=== PATIENT | female | born 1935 | race Caucasian/White ===

== ENCOUNTER → 2016-09-16 | Outpatient (CLI) | payer MEDICARE, BC | LOC: LAB.O 08:38 | PROVIDERS: ATTEND Internal Medicine Interventional Cardiology | DX: I48.0 Paroxysmal atrial fibrillation (principal); R53.83 Other fatigue ==

== ENCOUNTER → 2017-02-25 | Outpatient (CLI) | payer MEDICARE, BC ==
--- NOTE | 2017-02-25 10:54 | MAM ---
History: Well woman exam. Personal history of breast cancer status post right mastectomy Date of exam: 02/25/2017 Services provided: Left full field digital screening mammography. CAD, the images were reviewed with R2 computer aided detection. FINDINGS: Glandular tissue is scattered glandular contour. Comparison with 2010 exam. No dominant mass, architectural distortion or clustered microcalcification. IMPRESSION: Benign exam Recommendation: Routine annual mammography BIRAD CATEGORY: 2 BENIGN Electronically signed by: Amira Guzman MD 02/25/2017 10:53 AM CDT Workstation: [id number]
== END ==
LOC: MAMMO 08:25
PROVIDERS: ATTEND Nurse Practitioner Family
DX: Z12.31 Encounter for screening mammogram for malignant neoplasm of breast (principal)

== ENCOUNTER → 2017-03-04 | Outpatient (CLI) | payer MEDICARE, BC | LOC: LAB.O 09:21 | PROVIDERS: ATTEND Nurse Practitioner Family | DX: I10 Essential (primary) hypertension (principal); E01.8 Other iodine-deficiency related thyroid disorders and allied conditions ==

== ENCOUNTER 2017-05-25 08:29 | Observation (INO) | payer MEDICARE, BC ==
[2017-05-25] MEDS ORDERED: NITROGLYCERIN 0.4 MG 25 EA TAB SL ONE (09:12)
[2017-05-25] MEDS ORDERED: SODIUM CHLORIDE 0.9% (FLUSH) 10 ML SYG IV PRN ×2 (09:12→14:37)
[2017-05-25] MEDS: ASPIRIN TABLET 325 MG TAB PO ONE ×2 (09:26→09:29)
--- NOTE | 2017-05-25 09:30 | RAD ---
EXAM DESCRIPTION: Chest,1 View CLINICAL HISTORY: 82 years, Female, CHEST PAIN COMPARISON: November 20, 2014 FINDINGS: Adequate inspiration. Elevated right hemidiaphragm. Scattered relatively stable fibrotic type changes. Sternotomy. Multiple surgical clips over the right lower lateral thorax. Stable mild cardiomegaly. IMPRESSION: Chronic appearing lung change with stable mild cardiomegaly Electronically signed by: Ricardo Uriarte MD 05/25/2017 9:29 AM CDT
--- NOTE | 2017-05-25 10:23 | ED.PDOC ---
History of Present Illness - General Chief Complaint: Cardiovascular Problem Stated Complaint: chest tightness/sob Time Seen by Provider: 05/25/17 08:37 Source: patient - History of Present Illness Initial Comments: PT PRESENTS TO THE ED WITH COMPLAINT OF INTERMITTENT CHEST PRESSURE OVER THE PAST 2 WEEKS WITH RADIATION DOWN THE RIGHT ARM. PT STATES THAT PAIN IS ASSOCIATED WITH SOB AND NAUSEA. SHE REPORTS INCREASED DISCOMFORT THIS MORNING AND HIGHER THAN USUAL BP READINGS. PT REPORTS READINGS OF 150S/80S AT HOME. CURRENT PAIN IS 5/10. Timing/Duration: intermittent Severity/Quality: pressure Location: substernal Chest Pain Radiation: arms - RIGHT ARM Activities at Onset: none Prior Chest Pain/Cardiac Workup: cardiac cath, stress test Improving Factors: nothing Worsening Factors: nothing Nitro Today/Relief: no nitro taken today Aspirin Treatment Today: provided by ED Associated Symptoms: nausea/vomiting, shortness of breath, weakness Allergies/Adverse Reactions: Allergies Acetaminophen [From Percocet] Allergy (Verified 05/28/13 11:20) Amlodipine [From Ave] Allergy (Verified 05/25/17 09:05) Atorvastatin [From Lipitor] Allergy (Verified 05/28/13 11:20) Celecoxib [From Celebrex] Allergy (Verified 05/28/13 11:20) Cholestyramine [From Questran] Allergy (Verified 05/25/17 09:05) Digoxin [From Digitek] Allergy (Verified 05/28/13 11:20) Doxycycline [From Vibramycin] Allergy (Verified 05/28/13 11:20) Fenofibrate [From Tricor] Allergy (Verified 05/28/13 11:20) Gabapentin [From Neurontin] Allergy (Verified 05/28/13 11:20) Lisinopril Allergy (Verified 05/28/13 11:20) Meloxicam [From Mobic] Allergy (Verified 05/28/13 11:20) Morphine Allergy (Verified 05/28/13 11:20) Olmesartan [From Ave] Allergy (Verified 05/25/17 09:05) Oxcarbazepine [From Trileptal] Allergy (Verified 05/28/13 11:20) Oxycodone [From Percocet] Allergy (Verified 05/28/13 11:20) Piroxicam [From Feldene] Allergy (Verified 05/28/13 11:20) Polyethylene Glycol [From Ave] Allergy (Verified 05/25/17 09:05) Ramipril [From Altace] Allergy (Verified 05/28/13 11:20) Rosuvastatin [From Crestor] Allergy (Verified 05/28/13 11:20) Simvastatin [From Zocor] Allergy (Verified 05/28/13 11:20) Home Medications: Ambulatory Orders Misc Natural Products [Osteo Bi-Flex Triple Stre] 1 tab PO BID #0 05/26/13 Jolo-3 Fatty Acids [Fish Oil 645 mg] 1,300 mg PO BID #0 05/26/13 Spironolactone 25 mg PO DAILY #0 05/26/13 Amiodarone HCl 200 mg PO DAILY 05/25/17 Ibuprofen 200 mg PO PRN 05/25/17 Rivaroxaban [Xarelto] 15 mg PO BEDTIME 05/25/17 Review of Systems - Review of Systems Constitutional: Denies: chills, fever EENTM: Denies: blurred vision, double vision Respiratory: States: see HPI, short of breath. Denies: cough Cardiology: States: see HPI, chest pain. Denies: palpitations, syncope Gastrointestinal/Abdominal: States: nausea. Denies: diarrhea, vomiting Genitourinary: Denies: dysuria, hematuria Musculoskeletal: Denies: joint pain, joint swelling Skin: Denies: dryness, lesions Neurological: States: paresthesia, weakness Endocrine: States: no symptoms reported Hematologic/Lymphatic: States: no symptoms reported Past Medical History (General) - Patient Medical History Hx Seizures: No Hx Stroke: No Hx Dementia: Yes Hx Asthma: No Hx of COPD: No Hx Cardiac Disorders: Yes - CONGENITAL HD, CAD, AAA Hx Congestive Heart Failure: Yes Hx Pacemaker: No Hx Hypertension: Yes Hx Thyroid Disease: No Hx Diabetes: No Hx Gastroesophageal Reflux: No Hx Renal Disease: No Hx Cancer: No Hx of HIV: No Hx Hepatitis C: No Hx MRSA: No Hx Other - free text: CARDIOIVERSION IN 10/2016 AND IN 2012 ANGIOGRAM IN 2008-REVEALING MODERATE CARDIAC DISEASE Surgical History: tonsillectomy Other Surgeries:: OPEN HEART SURGERY, AORTA REVISION, VALVE REPLACEMENT - Vaccination History Hx Tetanus, Diphtheria Vaccination: No Hx Influenza Vaccination: No Hx Pneumococcal Vaccination: No - Social History Hx Tobacco Use: No Hx Chewing Tobacco Use: No Hx Alcohol Use: No Hx Substance Use: No Hx Substance Use Treatment: No Hx Depression: No Hx Physical Abuse: No Hx Emotional Abuse: No Hx Suspected Abuse: No - Female History Patient is a Female of Child Bearing Age (10 -59 yrs old): No Patient : No Family Medical History - Family History Mother Family History: Unknown Physical Exam - Physical Exam General Appearance: Alert, Obvious distress, Obese, Other - PTS HAND REMAINS OVER CHEST Eyes, Ears, Nose, Throat Exam: normal ENT inspection Neck: full range of motion, supple Respiratory: chest non-tender, lungs clear, normal breath sounds, no respiratory distress Cardiovascular/Chest: regular rate, rhythm, no murmur Gastrointestinal/Abdominal: non tender, soft Extremity: non-tender, normal inspection Neurologic: no motor/sensory deficits, alert, normal mood/affect, oriented x 3 Skin Exam: normal color, warm/dry Progress - Progress Progress: 05/25/17 10:20 PT REPORTS IMPROVEMENT OF PAIN TO 3/10 AFTER 1SL NTG, BP NOW 133/46. PT COMPLAINS OF HEADACHE. 05/25/17 11:[address] RAINES (PUMPMAN) WHO FEELS THOUGH PT CAN BE MANAGED AT [facility]. RECOMMENDS CARDIAC MONITORING AND SERIAL ENZYMES. - Results/Orders Results/Orders: 05/25/17 09:12 IV Care:Saline Lock per Protoc QSHIFT Telemetry .ONCE Sodium Chloride 0.9% (Flush) [Saline Flush Syringe] 10 ml IV PRN PRN EKG Assessment ONCE EKG Stat Pulse Ox Stat Pulse Oximetry Assessment DAILY 05/25/17 10:42 Sodium Chloride 0.9% 1000ML [Ns 1000 ml] 1,000 ml IVS .QD Laboratory Results - last 24 hr 05/25/17 09:19 WBC 8.7 RBC 4.90 Hgb 15.1 Hct 45.3 MCV 92.5 MCH 30.8 MCHC 33.3 RDW 14.5 Plt Count 307 MPV 8.0 Absolute Neuts (auto) 4.70 Absolute Lymphs (auto) 3.30 Absolute Monos (auto) 0.60 Absolute Eos (auto) 0.10 Absolute Basos (auto) 0.10 Neutrophils % 54.1 Lymphocytes % 37.2 Monocytes % 6.7 Eosinophils % 1.4 Basophils % 0.6 PT 14.1 H INR 1.250 PTT (SP) 35.6 Sodium 135 Potassium 3.8 Chloride 102 Carbon Dioxide 25 Anion Gap 11.8 L BUN 19 H Creatinine 1.04 BUN/Creatinine Ratio 18.3 Random Glucose 143 H Serum Osmolality 274.8 L Calcium 9.3 Magnesium 1.9 Total Bilirubin 0.5 Direct Bilirubin 0.1 Indirect Bilirubin 0.4 AST 24 ALT 11 Alkaline Phosphatase 68 Creatine Kinase 35 CK-MB (CK-2) 2.4 CK-MB (CK-2) % Not Reportable Troponin I 0.14 H* B-Natriuretic Peptide 295.0 H* Serum Total Protein 8.1 Albumin 3.6 - EKG/XRAY/CT EKG: Sinus - @84BPM, 1ST DEGREE AV BLOCK, NL AXIS, POOR R WAVE PROGRESSION. , no ST T wave changes - WHEN COMPARED TO 11/20/14 XRAY: chest - NO ACUTE DISEASE PER RAD Departure - Departure Clinical Impression: Chest pain, NSTEMI (non-ST elevated myocardial infarction) Time of Disposition: 11:03 Disposition: Admit Patient Condition: Fair Departure Forms: ED Discharge - Pt. Copy, Patient Portal Self Enrollment Referrals: LAURA LAW IV, DRIVER MESSENGER [Primary Care Provider] - 1-2 Weeks Home Medications: Ambulatory Orders Misc Natural Products [Osteo Bi-Flex Triple Stre] 1 tab PO BID #0 05/26/13 Jolo-3 Fatty Acids [Fish Oil 645 mg] 1,300 mg PO BID #0 05/26/13 Spironolactone 25 mg PO DAILY #0 05/26/13 Amiodarone HCl 200 mg PO DAILY 05/25/17 Ibuprofen 200 mg PO PRN 05/25/17 Rivaroxaban [Xarelto] 15 mg PO BEDTIME 05/25/17 Decision To Admit - Decistion To Admit Decision to Admit Reason: Admit from ER Decision to Admit Date: 05/25/17 Decision to Admit Time: 11:03 - CASE DISCUSSED WITH BUNNY GRAYSON NP WHO AGREES TO ADMIT
[2017-05-25] MEDS: SODIUM CHLORIDE 0.9% 1000ML 1,000 ML IVS PRN ×2 (10:44→14:19)
--- NOTE | 2017-05-25 12:09 | HP ---
SUPERVISING PHYSICIAN: Julio C Chavez MD CHIEF COMPLAINT: Chest pain. HISTORY OF PRESENT ILLNESS: Ms. Daley is an 82-year-old, female patient who presented to the Emergency Department secondary to intermittent chest pressure that had been occurring over the last 2 weeks that had been radiating down into her right arm. She noted the pain was associated with shortness of breath and nausea. She noted she had had increased discomfort on the morning of admission and had higher than usual blood pressure. She noted that her blood pressure was 150s/80s at home. On initial admission to the Emergency Room, she was reported the chest pressure was 5/10 on pain scale. The pain was located more substernally. She notes the pain was somewhat reproducible and changed with position as well as deep breathing. She had an extensive history of cardiovascular disease and had a previous cardioversion in 2016 as well as 2012. She has also had open heart surgery and aortic valve revision. Her project financial analyst is Dr. Singer. Her initial enzymes today on admission were elevated with troponin being 0.14. EKG in the Emergency Department showed a sinus rhythm with a first degree AV block, but ST or T wave changes compared to previous on 11/20/14. She was given a nitro and reports that her pain improved. On further discussion with Dr. Singer by Dr. Quinn in the Emergency Room, Dr. Sanchez, project financial analyst, felt that the patient could be best managed at [place] conservatively as he would not catheterize the patient and recommended she be placed in observation with cardiac monitoring and serial enzymes. The patient was admitted to observation on the Medical/Surgical Floor and at time of admission, she was pain free. PAST MEDICAL HISTORY: 1. Aortic stenosis, repaired in 2004 and then required revision of valve replacement with pig valve. 2. History of right breast cancer that was removed. 3. High blood pressure. 4. Gastroesophageal reflux disease. 5. History of asthma. PAST SURGICAL HISTORY: 1. Aortic valve replacement surgery in 2003 with a pig valve. 2. Tonsillectomy. 3. Splenectomy. 4. Carpal tunnel release. 5. Rotator cuff surgery. 6. Mastectomy on the right for cancer. 7. Lateral meniscectomy on the right knee. 8. Right total knee replacement. 9. Umbilical hernia repair. 10. Bilateral cataract removal. CURRENT MEDICATIONS: 1. Ibuprofen 200 mg as needed. 2. Xarelto 15 mg at bedtime. 3. Osteo-Biflex 1 tablet twice daily. 4. Amiodarone 200 mg daily. 5. Spironolactone 25 mg daily. 6. Fish oil 645 mg, 1300 mg b.i.d. ALLERGIES: TYLENOL, AMLODIPINE, LIPITOR, CELEBREX, QUESTRAN, DIGOXIN, DOXYCYCLINE, TRICOR, NEURONTIN, LISINOPRIL, MOBIC, MORPHINE, KRISTIE, TRILEPTAL, PERCOCET, FELDENE, POLYETHYLENE GLYCOL, RAMIPRIL, CRESTOR, ZOCOR. FAMILY HISTORY: Positive for coronary artery disease . SOCIAL HISTORY: The patient lives in [place] with her . She has never smoked. She does not drink alcohol. REVIEW OF SYSTEMS: CONSTITUTIONAL: Denies any fevers, chills. HEENT: Denies blurry vision, double vision. RESPIRATORY: As noted in history of present illness, shortness of breath. Denies cough. CARDIOVASCULAR: As noted in history of present illness, chest pain. Denies palpitations. She notes she has had multiple syncopal episodes within the last month. GASTROINTESTINAL: Denies diarrhea or vomiting. She notes she has had a little nausea. She has not been constipated. GENITOURINARY: Denies dysuria, hematuria, or other urinary symptoms. NEUROLOGIC: She notes some weakness and paresthesias to the left arm associated with the chest pain. She is also reporting that she has had multiple syncopal episodes upon standing in the past month. PHYSICAL EXAMINATION: VITAL SIGNS: Temperature 97.6. Pulse 69. Blood pressure 113/76. Respirations 18. O2 saturation 96% on nasal cannula at rest. Admission weight 106.1 kg. GENERAL: On admission to the Medical/Surgical Floor, the patient appears in no acute distress. She notes she is without any pain. She is alert. HEENT: Tympanic membranes clear bilaterally. Oropharynx is pink, moist without any lesions. NECK: Supple, nontender with full range of motion. No jugular venous distention noted. CHEST: Lungs clear to auscultation, just slightly diminished towards the bases. CARDIOVASCULAR: Regular rate and rhythm with a very faint systolic murmurs, but no gallops or rubs. ABDOMEN: Soft, nontender. Positive bowel sounds. EXTREMITIES: There is no cyanosis, clubbing or edema. NEUROLOGIC: The patient is alert and oriented times three with no focal neurological deficits evident. LABORATORY: CBC on admission showed white count 8.7 and the rest of the CBC was within normal limits with a hemoglobin 15.1, hematocrit 45.3, platelet count 307,000. Coagulation studies showed slightly elevated PT of 14.1, PT-T 35.6. Chemistries showed normal electrolytes with potassium 3.8, BUN 19, creatinine 1.04, calcium 9.3. Liver functions within normal limits. Initial troponin was elevated at 0.14. Urinalysis pending. MICROBIOLOGY: No specimens were submitted. RADIOLOGY: Chest x-ray per radiologic interpretation, single view, showed chronic appearing lung changes, but stable with mild cardiomegaly. Carotid Doppler artery studies were pending. 12 lead EKG shows sinus rhythm with no ST -T wave changes compared to previous as noted above in history of present illness. ASSESSMENT: 1. Non-ST elevated myocardial infarction with elevation of troponin on admission with an extensive cardiac history. 2. History of aortic stenosis with valve replacement in 2003. 3. History of breast cancer. 4. Hypertension. 5. Gastroesophageal reflux disease. 6. History of asthma. PLAN: I discussed the case with Dr. Quinn. She initially was going to transfer the patient to [facility] to Dr. Singer, but after further discussion with Dr. Singer, Dr. Singer voiced that he would not do anything interventionally given the patient's advanced age and past medical history and recommended she be kept at [facility] for serial enzymes and close monitoring on telemetry. The patient was pain free prior to admission to the Medical/Surgical Floor. We will start her on a nitroglycerin patch 0.4 mg. We will continue to do cardiac enzymes q.6h. and repeat in the morning as well. We will start the patient on DVT prophylaxis as appropriate per protocol. We will continue to monitor the patient and anticipate hopefully discharging tomorrow. On review of her medications, she does have a lengthy history of allergies and is currently on Xarelto as well as amiodarone. Certainly, the patient will need to be on an aspirin and at some point a beta michaelle prior to discharge once she is found to be stable. Until discharge, which is anticipated to be at least tomorrow or possibly the next day , we will continue to monitor the patient closely and treat appropriately. #[id number] [facility]
[2017-05-25] MEDS ORDERED: NITROGLYCERIN 0.4 MG 25 EA TAB SL PRN (14:37)
[2017-05-25] MEDS ORDERED: NITROGLYCERIN 0.4 MG/HR PATCH TOP SCH (15:00)
[2017-05-25] MEDS ORDERED: IV SET AND CAP CHANGE INJ INJ SCH (15:00)
[2017-05-25] MEDS: IBUPROFEN 200 MG TAB PO PRN ×2 (15:05→21:54)
--- NOTE | 2017-05-25 16:23 | US ---
EXAM DESCRIPTION: Carotid Duplex CLINICAL HISTORY: syncopal episodes COMPARISON: None Available. TECHNIQUE: Multiple grayscale, color, and spectral Doppler images of the bilateral carotid systems. FINDINGS: Mild atherosclerotic plaque is present. All duplex waveforms and velocities are within normal limits on both sides. ICA/CCA ratios are normal. Both vertebral arteries demonstrate antegrade flow. The external carotid arteries are patent. IMPRESSION: 1. Mild atherosclerosis with 0-40% stenosis in both internal carotid arteries by ratio and velocity criteria. Electronically signed by: Stanley Watson MD 05/25/2017 4:21 PM CDT
[2017-05-25] MEDS: SODIUM CHLORIDE 0.9% (FLUSH) 10 ML SYG IV SCH (21:37)
[2017-05-25] MEDS ORDERED: IBUPROFEN 200 MG TAB PO SCH (22:30)
--- NOTE | 2017-05-25 22:54 | PCM.CORE ---
Physician DVT/VTE - Prophylaxis Currently: Patient already on anticoagulation therapy - xarelto - Nurse DVT Assessment & Total Each Risk Factor Represents 5 Points: Elective Arthtroplasty Each Risk Factor Represents 3 Points: Age over 75 years Each Risk Factor Represents 2 Points: Malignancy (present/past) Each Risk Factor is 1 Point: Obesity (BMI >25) DVT Assessment Score: 11 - 5 or more Very High Risk Treatments: Early Ambulation *, Sequential Compression Device
[2017-05-26] MEDS ORDERED: REMOVE OLD PATCH TOP SCH (05:00)
[2017-05-26] MEDS: IBUPROFEN 200 MG TAB PO PRN (05:30)
[2017-05-26] MEDS: ASPIRIN TABLET 325 MG TAB PO SCH ×2 (08:31→08:49)
[2017-05-26] MEDS: SODIUM CHLORIDE 0.9% (FLUSH) 10 ML SYG IV SCH (08:31)
[2017-05-26] MEDS ORDERED: NATURAL PRODUCTS PO SCH (09:00)
[2017-05-26] MEDS ORDERED: AMIODARONE HCL 200 MG TAB PO SCH (09:00)
[2017-05-26] MEDS ORDERED: SPIRONOLACTONE 25 MG TAB PO SCH (09:00)
[2017-05-26] MEDS ORDERED: OMEGA PO SCH (09:00)
[2017-05-26] MEDS ORDERED: FISH OIL 1,200 MG CAP PO SCH (09:00)
[2017-05-26] MEDS ORDERED: FATTY ACIDS PO SCH (09:00)
[2017-05-26 13:48] VITALS: BP 147/79; TEMP 96.7; O2SAT 98
[2017-05-26] MEDS ORDERED: NITROGLYCERIN 0.4 MG/HR PATCH TOP SCH (16:00)
--- NOTE | 2017-05-26 16:20 | DS ---
DISCHARGE DIAGNOSIS: 1. Acute chest pains with the patient being placed in the hospital for overnight observation with serial EKGs and cardiac enzymes. 2. Elevated troponin levels noted to persist during the hospital stay with the patient's chest pain seemingly to have resolved, yet still with some abnormalities somewhat fluctuating at times on the 12-lead resting EKG. 3. History of aortic stenosis with 2 surgeries to replace with most recently in 2003 with a porcine valve prosthesis used. 4. History of breast cancer. 5. History of hypertension. 6. History of gastroesophageal reflux disease. 7. History of asthma. HISTORY OF PRESENT ILLNESS: This 82 year-old white female is placed in the hospital for overnight observation because of worsening chest discomfort which tends to move across her chest and is at times quite severe. It does not seem to be specifically related to exertion. History of open heart surgeries in the past with valve replacements most recently approximately 3 years ago at which time she had a porcine valve placed as a prosthesis of her aortic valve. 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 Her fist surgery was performed many years before at [facility] in [place], [place]. LABORATORY: CBC was within normal limits. INR of 1.25. Chemistry shows potassium is up to 4, BUN 16, creatinine 0.87, glucose 90, calcium 8.9. Liver enzymes normal. Troponin was initially 0.14 and was up to 0.17 by the morning of discharge. Beta natriuretic peptide 295. Albumin 3.2, cholesterol 171. No cultures obtained. Carotid ultrasound was performed and showed up to 40% stenosis in both internal carotids which was generally within normal limits. Chest x-ray performed in the Emergency Room showed some chronic lung changes with no acute findings. EKG does show some nonspecific changes with some T wave flattening as well as delayed R wave progression across the septum and some lateral ST and T changes present. Many of these changes were noted before after reviewing these changes and the patient's cardiac enzyme changes with Dr. Singer, clinical pharmacist in [place]. HOSPITAL COURSE: The patient was ready for ongoing care as an outpatient at the time of her discharge with no specific chest pains but having difficulty sleeping. PLAN: The patient is discharged home to have close followup with Dr. Singer in the heart clinic the first of next week for a nuclear stress test. They will call her for scheduling purposes. See her home medications. Avoid over exertion in the meantime. Add Imdur 30 mg daily to her home medications but stop if worsening headache is noted. Return if not improving. #[id number] [facility]
[2017-05-26] MEDS ORDERED: RIVAROXABAN 15 MG TAB PO SCH (21:00)
== END 2017-05-26 16:20 | disposition home or self-care (01) ==
LOC: ER 08:29 → MS 12:07
PROVIDERS: ADMIT Nurse Practitioner Family; ATTEND Emergency Medicine
DX: R07.89 Other chest pain (principal); R79.89 Other specified abnormal findings of blood chemistry; I10 Essential (primary) hypertension; K21.9 Gastro-esophageal reflux disease without esophagitis; J45.909 Unspecified asthma, uncomplicated; R06.02 Shortness of breath; I65.23 Occlusion and stenosis of bilateral carotid arteries; I44.0 Atrioventricular block, first degree; I51.7 Cardiomegaly; Z95.2 Presence of prosthetic heart valve; Z79.01 Long term (current) use of anticoagulants; Z79.899 Other long term (current) drug therapy; Z88.6 Allergy status to analgesic agent; Z88.8 Allergy status to other drugs, medicaments and biological substances; Z85.3 Personal history of malignant neoplasm of breast; Z90.11 Acquired absence of right breast and nipple; Z96.651 Presence of right artificial knee joint; Z90.81 Acquired absence of spleen; Z98.42 Cataract extraction status, left eye; Z98.41 Cataract extraction status, right eye; Z82.49 Family history of ischemic heart disease and other diseases of the circulatory system
CPT/HCPCS: 36415 ×3; 71010; 80048; 80053; 80061; 80076; 82550 ×3; 82553 ×3; 83880; 84484 ×3; 85025 ×2; 85610; 85730; 93005 ×3; 93880; 94760; 94762; 99284; G0378; J7030 ×2

== ENCOUNTER → 2017-12-23 | Outpatient (CLI) | payer MEDICARE, BC | LOC: LAB.O 14:47 | PROVIDERS: ATTEND Nurse Practitioner Family | DX: I43 Cardiomyopathy in diseases classified elsewhere (principal); I50.9 Heart failure, unspecified ==

== ENCOUNTER → 2017-12-30 | Outpatient (CLI) | payer MEDICARE, BC | LOC: LAB.O 07:57 | PROVIDERS: ATTEND Nurse Practitioner Family | DX: I50.9 Heart failure, unspecified (principal) ==

== ENCOUNTER → 2018-01-21 | Outpatient (CLI) | payer MEDICARE, BC | LOC: LAB.O 09:27 | PROVIDERS: ATTEND Nurse Practitioner Family | DX: I50.89 Other heart failure (principal) ==

== ENCOUNTER 2018-02-28 09:00 | Emergency (ER) | payer MEDICARE, BC ==
[2018-02-28 09:15] VITALS: O2SAT 97
[2018-02-28] MEDS ORDERED: ONDANSETRON INJ 4 MG/2 ML VIAL IV ONE (09:36)
[2018-02-28] MEDS ORDERED: fentaNYL CITRATE INJ 50 MCG/ML AMP IV ONE ×2 (09:39→11:48)
--- NOTE | 2018-02-28 09:55 | ED.PDOC ---
History of Present Illness - General Chief Complaint: Abdominal Pain Stated Complaint: abdomin pain Time Seen by Provider: 02/28/18 09:36 Information Source: patient Exam Limitations: no limitations - History of Present Illness Initial Comments: PT REPORTS ONSET OF RIGHT SIDED ABDOMINAL PAIN THAT AWOKE HER FROM SLEEP THIS AM. PT REPORTS SUBSEQUENT NEAR SYNCOPAL EPISODE AFTER ONSET OF ABDOMINAL PAIN. PT DENIES SYMPTOMS SUCH NAUSEA, VOMITING, DIARRHEA OR FEVER. Abdominal Pain Onset Location: RUQ, RLQ, flank Timing/Duration: 1-3 hours Improving Factors: nothing Worsening Factors: nothing Associated Symptoms: syncope Review of Systems - Review of Systems Constitutional: Denies: chills, fever EENTM: Denies: nose congestion, throat pain Respiratory: Denies: cough, short of breath Cardiology: Denies: chest pain, palpitations Gastrointestinal/Abdominal: States: see HPI, abdominal pain. Denies: constipation, diarrhea, nausea, vomiting Genitourinary: Denies: dysuria, frequency, hematuria Musculoskeletal: Denies: joint pain, joint swelling Skin: Denies: change in color, dryness Neurological: Denies: headache, paresthesia Endocrine: States: no symptoms reported Hematologic/Lymphatic: States: no symptoms reported Past Medical History (General) - Patient Medical History Hx Seizures: No Hx Stroke: No Hx Dementia: Yes Hx Asthma: No Hx of COPD: No Hx Cardiac Disorders: Yes - CONGENITAL HD, CAD, AAA Hx Congestive Heart Failure: No Hx Pacemaker: No Hx Hypertension: Yes Hx Thyroid Disease: No Hx Diabetes: No Hx Gastroesophageal Reflux: No Hx Renal Disease: No Hx Cancer: No Hx of HIV: No Hx Hepatitis C: No Hx MRSA: No - Vaccination History Hx Tetanus, Diphtheria Vaccination: No Hx Influenza Vaccination: No Hx Pneumococcal Vaccination: No - Social History Hx Tobacco Use: No Hx Chewing Tobacco Use: No Hx Alcohol Use: No Hx Substance Use: No Hx Substance Use Treatment: No Hx Depression: No Hx Physical Abuse: No Hx Emotional Abuse: No Hx Suspected Abuse: No - Female History Patient : No - Triage Comment ED Triage Comment: ems states patient is having right upper quad pain and it has gotten worse this am. She fell at home. Family Medical History - Family History Mother Family History: Unknown Living Status: Hx Family Asthma: No Hx Family Congestive Heart Failure: No Hx Family Hypertension: No Hx Family Stroke: No Hx Cardiac Disease: Yes Hx Family Diabetes: No Hx Family Cancer: No Hx Family;Other: Knows that her mother had heart problems as well as her grandmother. Aortic valve replaced with swine. Physical Exam - Physical Exam General Appearance: Alert, Obvious distress, Well Groomed, Well Hydrated, Well Nourished Eyes, Ears, Nose, Throat Exam: normal ENT inspection Neck: full range of motion, supple Respiratory: lungs clear, normal breath sounds, no respiratory distress Cardiovascular/Chest: regular rate, rhythm, no murmur Gastrointestinal/Abdominal: soft, guarding, tenderness - SEVERE RUQ/RLQ TENDERNESS Extremity: non-tender, normal inspection Neurologic: alert, normal mood/affect, oriented x 3 Skin Exam: normal color, warm/dry Progress - Progress Progress: 02/28/18 11:46 PT REPORTS INITIAL IMPROVEMENT IN PAIN AFTER 100MCG OF FENTANYL, BUT NOW STATES THAT PAIN IS RETURNING. LABS AND CT FINDINGS DISCUSSED, ADDITIONAL FENTANYL AND ZOSYN ORDERED. WILL CONSULT DR. BOLANOS. - Results/Orders Results/Orders: Laboratory Tests 02/28/18 02/28/18 02/28/18 09:00 09:00 09:47 WBC 29.3 H* RBC 5.02 Hgb 15.5 Hct 46.7 MCV 93.0 MCH 30.9 MCHC 33.2 RDW 14.5 Plt Count 310 MPV 7.7 Absolute Neuts (auto) Not Reportable Absolute Lymphs (auto) Not Reportable Absolute Monos (auto) Not Reportable Absolute Eos (auto) Not Reportable Neutrophils % Not Reportable Neutrophils % (Manual) 93.0 H Lymphocytes % Not Reportable Lymphocytes % (Manual) 2.0 Monocytes % Not Reportable Monocytes % (Manual) 4.0 Eosinophils % Not Reportable Basophils % Not Reportable Band Neutrophils 1.0 Normal RBC Morphology Plts reyes adequate Sodium 132 L Potassium 4.2 Chloride 100 L Carbon Dioxide 25 Anion Gap 11.2 L BUN 18 Creatinine 1.00 BUN/Creatinine Ratio 18.0 Random Glucose 139 H Serum Osmolality 268.7 L Calcium 9.0 Total Bilirubin 0.9 Direct Bilirubin 0.2 Indirect Bilirubin 0.7 AST 20 ALT 15 Alkaline Phosphatase 68 Serum Total Protein 7.8 Albumin 3.8 Lipase 18 L Urine Color Yellow Urine Appearance Clear Urine pH 5.5 Ur Specific [place] 1.020 Urine Protein Negative Urine Glucose (UA) Negative Urine Ketones Negative Urine Blood Negative Urine Nitrite Negative Urine Bilirubin Negative Urine Urobilinogen 0.2 Ur Leukocyte Esterase Negative Urine RBC 0 Urine WBC 0-1 Ur Epithelial Cells 0 Urine Bacteria 0 - EKG/XRAY/CT CT: ABD: APPY VS. R SIDE DIVERTICULITIS CT Ordered: Yes CT Interpretation Call Back: No - Consult/PCP Time Called: 12:00 Consult/PCP: DR. BOLANOS Consult Reason/Comments: EVALUATED PT AND REVIEWED CT AND FEELS THOUGH TRANSFER IS BEST. Departure - Departure Clinical Impression: Appendicitis, Diverticulitis, Leukocytosis Time of Disposition: 12:17 Disposition: Transfer to Hospital Condition: Serious Departure Forms: ED Discharge - Pt. Copy, Patient Portal Self Enrollment Instructions: DI for Abdominal Pain-Adult Referrals: LAURA LAW [facility], [facility] [Primary Care Provider] - 1-2 Weeks Home Medications: Ambulatory Orders Misc Natural Products [Osteo Bi-Flex Triple Stre] 1 tab PO BID #0 05/26/13 Velpen-3 Fatty Acids [Fish Oil 645 mg] 1,300 mg PO BID #0 05/26/13 Spironolactone 25 mg PO DAILY #0 05/26/13 Amiodarone HCl 200 mg PO DAILY 05/25/17 Ibuprofen 200 mg PO PRN 05/25/17 Rivaroxaban [Xarelto] 15 mg PO BEDTIME 05/25/17 Isosorbide Mononitrate [Imdur] 30 mg PO QAM #30 tab 05/26/17 Transfer to Outside Facility - Transfer Information Accepting Facility: [facility] Reason for Transfer: specialized care not available - SURGICAL/GI CONSULTATION, CONCERN FOR SEPSIS
[2018-02-28] MEDS: SODIUM CHLORIDE 0.9% (FLUSH) 10 ML SYG IV PRN ×2 (09:58→11:31)
[2018-02-28] MEDS ORDERED: PIPERACILLIN/TAZOBACTAM 3.375 GM in SODIUM CHLORIDE 0.9% 100ML 100 ML IVPB ONE (11:20)
[2018-02-28] MEDS ORDERED: SODIUM CHLORIDE 0.9% 100ML 100 ML IVPB ONE (11:26)
[2018-02-28] MEDS ORDERED: PIPERACILLIN/TAZOBACTAM 3.375 GM VIAL IVPB ONE (11:26)
--- NOTE | 2018-02-28 11:31 | CT ---
EXAM DESCRIPTION: CT ABDOMEN AND PELVIS WITH CONTRAST CLINICAL HISTORY: ruq, rlq abd tenderness COMPARISON: None Available. TECHNIQUE: CT of the abdomen and pelvis are performed during IV bolus administration of 100 mL of Isovue 300. Oral contrast media was not utilized. This exam was performed according to our departmental dose-optimization program, which includes automated exposure control, adjustment of the mA and/or kV according to patient size and/or use of iterative reconstruction technique. FINDINGS: Mild basilar fibrotic and and/or a atelectatic changes particularly in the posterior right lung base and to a lesser extent on the left is present without dense consolidation. Moderate cardiomegaly and moderately large retrocardiac hiatal hernia noted. In the right lateral mid abdomen at and above the level of the iliac crest and approximately 5 cm below the inferior surface of the liver is an acute inflammatory process associated with the cecum and ileocecal valve region of the right colon. Numerous small to modest diverticula are present and I suspect this represents acute right-sided diverticulitis. The appendix is identified and lies laterally but does not appear particularly distended or markedly inflamed. Early acute appendicitis cannot be entirely excluded because of involvement in the area of inflammation. Free abdominal air or a drainable fluid collection is not apparent. Involvement of both the cecum and proximal ascending colon as well as a portion of the terminal ileum with inflammatory changes is evident. Diffuse diverticulosis including the transverse and left colon and sigmoid is evident without additional inflammatory changes. Fluid within the pelvis or adnexal regions is not apparent. The bladder is drained via Meza catheter and a small anteverted uterus is evident. No adnexal masses are noted. The liver normally enhances without solid or cystic mass. The gallbladder is normally distended without stones or ductal dilation. A small normal spleen is present and fatty infiltrated pancreas noted. The adrenal glands are normal. Kidneys normally enhance without obstruction or mass. Aortic calcification without aneurysm is noted. No retroperitoneal adenopathy or mesenteric mass is seen. Small or large bowel obstruction is not apparent. IMPRESSION: 1. Acute inflammatory changes involving the terminal ileum cecum and proximal a sending colon and the adjacent appendix along the lateral margin of the a.c. sending colon. Extensive right colonic diverticulosis is present with only minimal thickening and no significant distention of the appendix. Early acute appendicitis as well as right-sided diverticulitis should be considered is possibilities. Free abdominal air or a drainable abscess or fluid collection is not apparent. 2. Extensive diverticulosis involving the transverse and left colon. 3. Normal-appearing abdomen and upper abdominal solid organs including the liver and kidney. 4. Advanced degenerative changes in the lumbar spine without evidence of bowel obstruction. 5. Moderate cardiomegaly with mild atelectatic or inflammatory changes at the posterior right lung base and minimally on the left. Electronically signed by: Teodoro Small MD 02/28/2018 11:30 AM CDT
[2018-02-28 12:30] VITALS: BP 117/57; TEMP 97.3
[2018-02-28] MEDS ORDERED: SODIUM CHLORIDE 0.9% 1000ML 1,000 ML IVS PRN (12:38)
== END 2018-02-28 13:28 | disposition short-term general hospital (02) ==
LOC: ER 09:00
DX: K37 Unspecified appendicitis (principal); K57.32 Diverticulitis of large intestine without perforation or abscess without bleeding; D72.829 Elevated white blood cell count, unspecified; R55 Syncope and collapse; F03.90 Unspecified dementia, unspecified severity, without behavioral disturbance, psychotic disturbance, mood disturbance, and anxiety; I25.10 Atherosclerotic heart disease of native coronary artery without angina pectoris; I10 Essential (primary) hypertension; Q24.9 Congenital malformation of heart, unspecified
CPT/HCPCS: 36415; 74177; 80048; 80076; 81001; 83605; 83690; 85025; 87040; J2405; J2543; J3010; J7030; J7050

== ENCOUNTER → 2018-09-19 | Outpatient (CLI) | payer MEDICARE, BC ==
--- NOTE | 2018-09-19 11:37 | RAD ---
EXAM DESCRIPTION: Chest,2 Views CLINICAL HISTORY: UNSP ATRIAL FLUTTER COMPARISON: Previous study December 23, 2017 TECHNIQUE: PA/lateral FINDINGS: Sternotomy wires are present. 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 Heart size is large with normal pulmonary vascularity. Surgical clips over the right chest are noted. Minimal linear scarring in the lingula. No pleural effusion or pneumothorax. Lungs are clear with no consolidating infiltrate. Lateral view shows intact sternum and prominent spurring in the lower T-spine. IMPRESSION: Large heart without congestive failure. Electronically signed by: Sam Edward MD 09/19/2018 11:36 AM [facility]
== END ==
LOC: LAB.O 10:34
PROVIDERS: ATTEND Internal Medicine Interventional Cardiology
DX: I48.92 Unspecified atrial flutter (principal)

== ENCOUNTER → 2019-10-27 | Outpatient (CLI) | payer MEDICARE, BC ==
--- NOTE | 2019-10-27 16:01 | RAD ---
EXAM DESCRIPTION: Knee,Left Complete CLINICAL HISTORY: pain in left hip and left knee COMPARISON: None FINDINGS: 3 views left knee. Severe medial greater than lateral joint space loss with marginal osteophyte formation, subchondral sclerosis and cystlike formation. Advanced although less severe patellofemoral joint osteoarthritis. Normal bone density. IMPRESSION: End stage osteoarthritis of left knee. Electronically signed by: Luis Alfredo Juarez MD 10/27/2019 3:59 PM [facility]
--- NOTE | 2019-10-27 16:12 | RAD ---
EXAM DESCRIPTION: Pelvis CLINICAL HISTORY: pain in left knee and left hip COMPARISON: None FINDINGS: 1 view pelvis. Pelvic ring is intact. SI joints and sacral struts are intact. No advanced hip joint osteoarthritis. No fracture. IMPRESSION: Normal Electronically signed by: Luis Alfredo Juarez MD 10/27/2019 4:11 PM [facility]
== END ==
LOC: RAD 09:01
PROVIDERS: ATTEND Orthopaedic Surgery
DX: M17.12 Unilateral primary osteoarthritis, left knee (principal); M25.552 Pain in left hip